=== PATIENT | male | born 1965 | race Caucasian/White ===

== ENCOUNTER 2022-07-22 13:53 | Emergency (ER) | payer OTHER ==
[2022-07-22] MEDS ORDERED: OXYMETAZOLINE 0.05% NASL SPRAY 1 SPRAY BOTTLE NASAL STA (14:37)
[2022-07-22] MEDS ORDERED: LABETALOL 5 MG/ML VIAL MDV IVP STA (14:49)
--- NOTE | 2022-07-22 15:24 | ED ---
ENT HPI - General Chief complaint: ENT Stated complaint: nose bleed Time Seen by Provider: 07/22/22 14:12 Source: patient, RN notes reviewed Mode of arrival: ambulatory Limitations: no limitations - History of Present Illness Initial comments: This is a 57-year-old male who presents to the emergency department for a nosebleed. Patient states that this started suddenly earlier this morning. He is only bleeding from the right nostril. He was able to get this to stop, but subsequently blew his nose again, and the bleeding then resumed. Denies any pa in or injuries. He was noted to be hypertensive on arrival. Denies any history of high blood pressure and he is not taking any blood thinners. He has no headaches or visual changes. Denies any fevers, chills, sore throat, cough, dyspnea, chest pain, palpitations, abdominal pain, nausea, vomiting, diarrhea, back pain, or headaches. MD complaint: epistaxis Location: nose - Related Data Previous Rx's Medication Instructions Recorded Amoxic-Pot Clav 875-125Mg 1 tab PO Q12HR 7 Days #14 tab 07/22/22 [Augmentin 875-125] amLODIPine [Norvasc] 5 mg PO DAILY #15 tab 07/22/22 Allergies Allergy/AdvReac Type Severity Reaction Status Date / Time No Known Allergies Allergy Verified 07/22/22 15:18 Review of Systems ROS Statement: Those systems with pertinent positive or pertinent negative responses have been documented in the HPI. ROS Other: All systems not noted in ROS Statement are negative. Past Medical History Past Medical History: No Reported History History of Any Multi-Drug Resistant Organisms: None Reported Past Surgical History: No Surgical Hx Reported Past Psychological History: No Psychological Hx Reported Smoking Status: Never smoker Past Alcohol Use History: None Reported, Occasional Past Drug Use History: None Reported, Marijuana General Exam Limitations: no limitations General appearance: alert, in no apparent distress Head exam: Present: atraumatic, normocephalic, normal inspection ENT exam: Present: other (Active bleeding from the right nostril.) Respiratory exam: Present: normal lung sounds bilaterally. Absent: respiratory distress, wheezes, rales, rhonchi, stridor Cardiovascular Exam: Present: regular rate, normal rhythm, normal heart sounds. Absent: systolic murmur, diastolic murmur, rubs, gallop, clicks Neurological exam: Present: alert, oriented X3, CN II-XII intact Psychiatric exam: Present: normal affect, normal mood Skin exam: Present: warm, dry, intact, normal color. Absent: rash Course Vital Signs 07/22/22 07/22/22 07/22/22 13:57 15:30 16:03 Temperature 97.6 F Pulse Rate 106 H 90 Respiratory 20 Rate Blood Pressure 195/95 167/112 144/90 O2 Sat by Pulse 95 Oximetry Medical Decision Making - Medical Decision Making This is a 57-year-old male who presents to the emergency department for epistaxis. Was pt. sent in by a medical professional or institution? @ -No Did you speak to anyone other than the patient for history? @ -No Did you review nursing and triage notes? @ -Yes, and I agree, it is accurate with regards to the patient's symptoms. Were old charts reviewed? @ -No Differential Diagnosis? @ -Differential Epistaxis: Coagulopathy, trauma, AV malformation, malignancy, dry mucous membranes, sinusitis, hypertension, this is not meant to be an all-inclusive list. What testing was considered but not performed? (CT, X-rays, U/S, labs)? Why? @ -No What meds were considered but not given? Why? @ -None Did you discuss the management of the patient with other professionals? @ -No Did you reconcile home meds? @ -No Was smoking cessation discussed for >3mins.? @ -No Was critical care preformed (if so, how long)? @ -No Were there social determinants of health that impacted care today? How? (Homelessness, low income, unemployed, alcoholism, drug addiction, transportation, low edu. Level, literacy, decrease access to med. care, skilled nursing, rehab)? @ -No Was there de-escalation of care discussed even if they declined? (Discuss DNR or withdrawal of care, Hospice)? @ -No What co-morbidities impacted this encounter? (DM, HTN, Smoking, COPD, CAD, Cancer, CVA, Hep., AIDS, mental health diagnosis, sleep apnea, morbid obesity)? @ -HTN, morbid obesity Was patient admitted / discharged? @ -Discharged. BP elevated on arrival at 195/95. He has no history of elevated blood pressure and is not being treated for hypertension or any other medical problems. Blood pressure was checked again shortly afterwards and continued to be elevated around the initial value. Given the active bleeding with elevated blood pressure, baseline lab work was obtained and he was given 20 mg of IV labetalol. Blood pressure did improve following medication administration and lab work was nonactionable. With regards to the epistaxis, direct pressure was initially planned with a nasal clamp for approximately 25-30 minutes. He continued to have active bleeding. Afrin nasal spray was subsequ ently applied and the nose was clamped for an additional 30 minutes. Bleeding slowed down, but was still fairly active. Topical tranexamic acid was then used in an attempt to control the bleeding. This did improve it much more than any other medication had, however the bleeding still persisted. Discussed with the patient that the next step would be to consider a rapid Rhino Rocket. The process and method of action was reviewed with the patient. He was agreeable to this and the Rhino Rocket was placed without difficulty and successfully controlled the bleeding. I spoke with Dr. Sánchez, ENT, who advised that their office does not accept Medicaid and the patient would need to return to the emergency department to have this removed or pay out of pocket at their office. This was discussed with the patient, who will plan to return to the emergency department in 3 days, on 07/25, for removal of the Rhino Rocket. Prescription for Augmentin provided with dosing instructions reviewed. Given the elevated blood pressure, he was started on 5 mg of amlodipine daily. Discussed that uncontrolled and untreated high blood pressure increases his risk for heart attacks and strokes. He is instructed to become established with a primary care provider as soon as possible for ongoing management of his overall health, including his blood pressure. Several local primary care providers were listed on his discharge instructions, and he is instructed to contact one of them to become established as soon as possible. Undiagnosed new problem with uncertain prognosis? @ -None Drug Therapy requiring intensive monitoring for toxicity (Heparin, Nitro, Insulin, Cardizem)? @ -None Were any procedures done? @ -None Diagnosis/symptom? @ -Epistaxis, Elevated BP Acute, or Chronic, or Acute on Chronic? @ -Acute Uncomplicated (without systemic symptoms) or Complicated (systemic symptoms)? @ -Uncomplicated Side effects of treatment? @ -None Exacerbation, Progression, or Severe Exacerbation] @ -Not applicable Poses a threat to life or bodily function? @ -Yes Return precautions reviewed in depth, the patient is instructed to return to the emergency department with any new, worsening, or concerning symptoms. Patient verbalized understanding. This case was discussed in detail with the attending ED physician, Dr. Blackburn. Presentation, findings, and treatment plan discussed in detail as well. - Lab Data Result diagrams: 07/22/22 15:10 07/22/22 15:10 Lab Results 07/22/22 07/22/22 07/22/22 Range/Units 15:10 15:10 15:10 WBC 6.9 (3.8-10.6) k/uL RBC 6.04 H (4.30-5.90) m/uL Hgb 17.5 (13.0-17.5) gm/dL Hct 48.0 (39.0-53.0) % MCV 79.5 L (80.0-100.0) fL MCH 28.9 (25.0-35.0) pg MCHC 36.4 (31.0-37.0) g/dL RDW 13.6 (11.5-15.5) % Plt Count 138 L (150-450) k/uL MPV 7.8 Neutrophils % 83 % Lymphocytes % 10 % Monocytes % 4 % Eosinophils % 1 % Basophils % 1 % Neutrophils # 5.7 (1.3-7.7) k/uL Lymphocytes # 0.7 L (1.0-4.8) k/uL Monocytes # 0.3 (0-1.0) k/uL Eosinophils # 0.0 (0-0.7) k/uL Basophils # 0.1 (0-0.2) k/uL Hyperchromasia Slight PT 11.3 (9.0-12.0) sec INR 1.1 (<1.2) APTT 25.3 (22.0-30.0) sec Sodium 137 (137-145) mmol/L Potassium 4.5 (3.5-5.1) mmol/L Chloride 104 (98-107) mmol/L Carbon Dioxide 21 L (22-30) mmol/L Anion Gap 12 mmol/L BUN 16 (9-20) mg/dL Creatinine 0.72 (0.66-1.25) mg/dL Est GFR (CKD-EPI)AfAm >90 (>60 ml/min/1.73 sqM) Est GFR (CKD-EPI)NonAf >90 (>60 ml/min/1.73 sqM) Glucose 119 H (74-99) mg/dL Calcium 9.1 (8.4-10.2) mg/dL Total Bilirubin 1.3 (0.2-1.3) mg/dL AST 47 (17-59) U/L ALT 70 H (4-49) U/L Alkaline Phosphatase 72 (38-126) U/L Troponin I (0.000-0.034) ng/mL Total Protein 7.9 (6.3-8.2) g/dL Albumin 4.9 (3.5-5.0) g/dL 07/22/22 Range/Units 15:10 WBC (3.8-10.6) k/uL RBC (4.30-5.90) m/uL Hgb (13.0-17.5) gm/dL Hct (39.0-53.0) % MCV (80.0-100.0) fL MCH (25.0-35.0) pg MCHC (31.0-37.0) g/dL RDW (11.5-15.5) % Plt Count (150-450) k/uL MPV Neutrophils % % Lymphocytes % % Monocytes % % Eosinophils % % Basophils % % Neutrophils # (1.3-7.7) k/uL Lymphocytes # (1.0-4.8) k/uL Monocytes # (0-1.0) k/uL Eosinophils # (0-0.7) k/uL Basophils # (0-0.2) k/uL Hyperchromasia PT (9.0-12.0) sec INR (<1.2) APTT (22.0-30.0) sec Sodium (137-145) mmol/L Potassium (3.5-5.1) mmol/L Chloride (98-107) mmol/L Carbon Dioxide (22-30) mmol/L Anion Gap mmol/L BUN (9-20) mg/dL Creatinine (0.66-1.25) mg/dL Est GFR (CKD-EPI)AfAm (>60 ml/min/1.73 sqM) Est GFR (CKD-EPI)NonAf (>60 ml/min/1.73 sqM) Glucose (74-99) mg/dL Calcium (8.4-10.2) mg/dL Total Bilirubin (0.2-1.3) mg/dL AST (17-59) U/L ALT (4-49) U/L Alkaline Phosphatase (38-126) U/L Troponin I <0.012 (0.000-0.034) ng/mL Total Protein (6.3-8.2) g/dL Albumin (3.5-5.0) g/dL Disposition Clinical Impression: Epistaxis, Elevated blood pressure reading Disposition: HOME SELF-CARE Instructions (If sedation given, give patient instructions): Nosebleed (ED) Additional Instructions: Return to the emergency department in 3 days, on 07/25, for removal of the Rhino Rocket. Return sooner if the bleeding resumes, it becomes very painful, or you otherwise cannot tolerate it. You will take the antibiotic as prescribed for 7 days. Begin taking the Amlodipine daily for control of your blood pressure. You will need to become established with a local primary care physician for ongoing management of your overall health, including your blood pressure. I will list a few local primary care providers below who you can contact to become established with as soon as possible. Prescriptions: Amoxic-Pot Clav 875-125Mg [Augmentin 875-125] 1 tab PO Q12HR 7 Days #14 tab amLODIPine [Norvasc] 5 mg PO DAILY #15 tab Is patient prescribed a controlled substance at d/c from ED?: No Referrals: Héctor Benitez MD [STAFF PHYSICIAN] - 1-2 days Toro Hendrix MD [STAFF PHYSICIAN] - 1-2 days Juan Avendano Jr, DO [Doctor of Osteopathic Medicine] - 1-2 days Sophie Carias MD [REFERRING] - 1-2 days Walker Luis MD [STAFF PHYSICIAN] - 1-2 days Leslee Toney MD [STAFF PHYSICIAN] - 1-2 days None,Stated [Primary Care Provider] - 1-[address] [facility] [NON-STAFF] - 1-2 days
[2022-07-22 15:25] LABS: Basophils # (A) 0.1 k/uL (0-0.2); Basophils % (A) 1 %; Eosinophils % (A) 1 %; HGB 17.5 gm/dL (13.0-17.5); Hyperchromasia Slight; Lymphocytes # (A) 0.7 k/uL (1.0-4.8); Lymphocytes % (A) 10 %; MCH 28.9 pg (25.0-35.0); MCHC 36.4 g/dL (31.0-37.0); MCV 79.5 fL (80.0-100.0); Mean Platelet Volume 7.8; Monocytes # (A) 0.3 k/uL (0-1.0); Monocytes % (A) 4 %; Neutrophils # (A) 5.7 k/uL (1.3-7.7); Neutrophils % (A) 83 %; Platelet Count 138 k/uL (150-450); RBC 6.04 m/uL (4.30-5.90); RDW 13.6 % (11.5-15.5); WBC 6.9 k/uL (3.8-10.6)
[2022-07-22 15:29] LABS: ALT 70 U/L (4-49); AST 47 U/L (17-59); African American GFR (CKD) >90 (>60 ml/min/1.73 sqM); Albumin 4.9 g/dL (3.5-5.0); Alkaline Phosphatase 72 U/L (38-126); Anion Gap 12 mmol/L; Blood Urea Nitrogen 16 mg/dL (9-20); Calcium 9.1 mg/dL (8.4-10.2); Carbon Dioxide 21 mmol/L (22-30); Chloride 104 mmol/L (98-107); Glucose 119 mg/dL (74-99); Non-African American GFR(CKD) >90 (>60 ml/min/1.73 sqM); Potassium 4.5 mmol/L (3.5-5.1); Sodium 137 mmol/L (137-145); Total Bilirubin 1.3 mg/dL (0.2-1.3); Total Protein 7.9 g/dL (6.3-8.2)
[2022-07-22] MEDS ORDERED: TRANEXAMIC ACID 1,000 MG/10 ML VIAL IRRIGATION ONE (15:29)
[2022-07-22 15:34] LABS: INR 1.1 (<1.2); Partial Thromboplastin Time 25.3 sec (22.0-30.0); Prothrombin Time 11.3 sec (9.0-12.0)
[2022-07-22] MEDS ORDERED: GELATIN SPONGE,ABSORB (SMALL) 1 EACH SPONGE TOPICAL STA (16:35)
[2022-07-22] MEDS ORDERED: AMOXIC-POT CLAV 875MG STARTER PACK 2 TAB BTL PO STA (17:09)
[2022-07-22 17:43] VITALS: BP 159/97; PULSE 67; RESP 18; TEMP 97.2
== END 2022-07-22 17:43 | disposition home or self-care (01) ==
LOC: EC 13:53
DX: R04.0 Epistaxis (principal); R03.0 Elevated blood-pressure reading, without diagnosis of hypertension; F12.90 Cannabis use, unspecified, uncomplicated
CPT/HCPCS: 36415; 80053; 84484; 85025; 85610; 85730; 96374; 99283